=== PATIENT | male | born 1970 ===

== ENCOUNTER 2021-04-24 17:25 | Emergency (ER) | payer SELFPAY ==
[~2021-04-24] VITALS: Ht 188 cm; Wt 93.0 kg
[2021-04-24] MEDS ORDERED: LORazepam 2MG/ML-1ML VIAL IV ONE (17:30)
[2021-04-24] MEDS ORDERED: SODIUM CHLORIDE 0.9% 1,000 ML IV ONE (17:30)
[2021-04-24] MEDS ORDERED: LORazepam 2MG/ML-1ML VIAL IM ONE (18:15)
[2021-04-24 20:56] VITALS: BP 137/75
[2021-04-24 21:30] LABS: Basophils # (auto) 0 10 ^3/uL (0-0.2); Basophils % (auto) 0.1 % (0.0-2.0); Eosinophils # (auto) 0.1 10 ^3/uL (0-0.8); Eosinophils % (auto) 0.5 % (0.0-7.0); Hemoglobin 16.3 g/dL (13.5-17.5); Lymphocytes # (auto) 2.1 10 ^3/uL (0.4-5.4); Lymphocytes % (auto) 19.8 % (10.0-50.0); Mean Corpuscular Hemoglobin 30.6 pg (28.0-32.0); Mean Corpuscular Hgb Conc. 34.7 g/dL (32.0-36.0); Monocytes # (auto) 1.1 10 ^3/uL (0-1.3); Neutrophils # (auto) 7.5 10 ^3/uL (1.6-8.6); Neutrophils % (auto) 69.6 % (37.0-80.0); Nucleated Red Blood Cells % 0.2 %; Red Blood Cells 5.35 10^6/uL (4.5-5.90); Red Cell Distribution Width 14.3 % (11.8-14.3); White Blood Cell 10.7 10^3/uL (4.4-10.8)
[2021-04-24 21:45] LABS: Chloride 112 mmol/L (98-107); Sodium 139 mmol/L (136-145)
[2021-04-24 21:51] LABS: Alanine Aminotransferase 32 U/L (16-61); Albumin 3.3 g/dL (3.4-5.0); Alkaline Phosphatase 130 U/L (45-117); Anion Gap 6 (5-15); Aspartate Aminotransferase 15 U/L (15-37); BUN/Creatinine Ratio 14.9; Bilirubin, Total 0.8 mg/dL (0.2-1.0); Blood Alcohol < 3.0 mg/dL (0-5); Blood Urea Nitrogen 15 mg/dL (7-18); Calcium 8.4 mg/dL (8.5-10.1); Carbon Dioxide 21 mmol/L (21-32); GFR African American 100 mL/min; GFR Non-African American 83 mL/min; Glucose 103 mg/dL (74-106); Total Protein 6.3 g/dL (6.4-8.2)
[2021-04-24 22:05] LABS: Potassium 2.6 mmol/L (3.5-5.1)
[2021-04-24] MEDS ORDERED: POTASSIUM EFFERVESENT TAB 25 MEQ PO ONE (22:15)
[2021-04-24] MEDS ORDERED: POTASSIUM CHL 20MEQ/100ML 100 ML IV ONE (22:15)
== END 2021-04-24 23:11 | disposition home or self-care (01) ==
LOC: ER 17:25
DX: S09.90XA Unspecified injury of head, initial encounter (principal); F41.9 Anxiety disorder, unspecified; I10 Essential (primary) hypertension; F17.210 Nicotine dependence, cigarettes, uncomplicated; F12.10 Cannabis abuse, uncomplicated; F15.10 Other stimulant abuse, uncomplicated; Z90.49 Acquired absence of other specified parts of digestive tract; Y04.8XXA Assault by other bodily force, initial encounter; Y93.89 Activity, other specified; Y92.89 Other specified places as the place of occurrence of the external cause; Y99.8 Other external cause status
CPT/HCPCS: 36415; 70450; 80053; 80320; 85025; 96360; 96361; 96372; 99284; J2060; J3480; J7030